=== PATIENT | female | born 1955 | race Caucasian/White ===

== ENCOUNTER 2018-03-22 06:12 | Inpatient (IN) ==
[2018-03-22] MEDS ORDERED: Sodium Chlor 0.9% Inj 500 ML IV.CONT ONE (07:15)
[2018-03-22] MEDS ORDERED: Chlorhexidine Gluconate 2% 1 Pack (2 Cloths) TOPICAL ONE (07:15)
[2018-03-22] MEDS ORDERED: Metoprolol Tartrate 25 MG Tablet PO ONE (07:15)
--- NOTE | 2018-03-22 11:26 | NM ---
EXAM DATE: 03/22/2018 11:04 AM EDT AGE/SEX: 63 years / Female INDICATIONS: Squamous cell carcinoma. Right groin cancer. CLINICAL DATA: This is the patient's subsequent encounter. Patient reports that signs and symptoms h ave been present for 1 day and indicates a pain score of 0/10. MEDICAL/SURGICAL HISTORY: Hypertension. Irritable bowel syndrome. Parkinson's disease. Colon resection. COMPARISON: No prior exams available for comparison. No external comparison. TECHNIQUE: Multiple injections were made per protocol. Lymphangiogram phase was obtained in addition to delayed spot views. DOSE: 1.0 mCi Tc99m Tc99m Sulfur Colloid intradermal IMAGING: SPECT/CT imaging with fusion was performed. RADIATION DOSE: 2.19 CTDIvol(mGy) FINDINGS: Isotope was injected around the edges of the lesion. The most prominent first identified lymph node i s in the left inguinal region and marked. There is a contralateral node as well not as radiodense CONCLUSION: 1. Bilateral inguinal lymph nodes show uptake left greater than right. The lymph nodes on the CT sca n is not overly impressive in size or appearance. Electronically signed by: Frantz Cassidy MD 03/22/2018 11:24 AM EDT
[2018-03-22] MEDS ORDERED: Scopalamine 1.5 MG Patch T-DERMAL ONE ×2 (12:03→12:15)
[2018-03-22] MEDS ORDERED: Lidocaine 1%/Epinephrine 1:100,000 Inj 30 ML Vial ONE (12:40)
[2018-03-22] MEDS ORDERED: Lidocaine PF 1% Inj 5 ML Syringe OTHER ONE (13:10)
[2018-03-22] MEDS ORDERED: Neostigmine Inj 5 MG/5 ML Syringe IV.PUSH ONE (13:10)
[2018-03-22] MEDS ORDERED: Ketorolac Inj 30 MG/ML (IVP) Vial IV.PUSH ONE (13:10)
[2018-03-22] MEDS ORDERED: Glycopyrrolate Inj 1 MG/5 ML Syringe IV.PUSH ONE (13:10)
[2018-03-22] MEDS ORDERED: ceFAZolin 2 GM Premix Inj 2 GM/50 ML PIGGYBACK IV.SIG ONE (15:10)
[2018-03-22] MEDS ORDERED: Sodium Chloride 0.9% 2 ML Flush PRN IV.FLUSH (15:44)
[2018-03-22] MEDS ORDERED: LORazepam 0.5 MG Tablet PO PRN (16:29)
[2018-03-22] MEDS ORDERED: fentaNYL Citrate Inj 100 MCG/2 ML Ampul ONE (16:57)
[2018-03-22] MEDS ORDERED: *morphine SULFATE 10 MG/ML PERIprocedure ONLY ONE (17:17)
[2018-03-22] MEDS: KCL 20 mEq/D5W/NaCl 0.45% Inj 1,000 ML IV.CONT SCH (17:20)
[2018-03-22] MEDS: Acyclovir 200 MG Capsule PO SCH (18:26)
[2018-03-22] MEDS: Ketorolac Inj 30 MG/ML (IVP) Vial IV.PUSH SCH (18:44)
[2018-03-22] MEDS: Amantadine 100 MG Capsule PO SCH (20:49)
[2018-03-22] MEDS ORDERED: Sodium Chloride 0.9% 2 ML Flush BID IV.FLUSH SCH (21:00)
[2018-03-23] MEDS: Ketorolac Inj 30 MG/ML (IVP) Vial IV.PUSH SCH ×2 (00:11→05:20)
[2018-03-23] MEDS: KCL 20 mEq/D5W/NaCl 0.45% Inj 1,000 ML IV.CONT SCH (00:13)
[2018-03-23 04:35] VITALS: O2SAT 98
[2018-03-23 07:37] LABS: Baso # (Auto) 0.1 th/mm3 (0.0-0.2); Baso % (Auto) 0.6 % (0.0-2.0); Eos # (Auto) 0.1 th/mm3 (0.0-0.4); Eos % (Auto) 1.6 % (0.0-4.0); Hematocrit 37.9 % (35.0-46.0); Hemoglobin 13.1 gm/dL (11.6-15.3); Lymph # (Auto) 1.5 th/mm3 (1.0-4.8); Lymph % (Auto) 15.9 % (9.0-44.0); Mean Corpuscular HGB Conc 34.6 % (32.0-36.0); Mean Corpuscular Volume 101.2 fL (80.0-100.0); Mean Platelet Volume 8.9 fL (7.0-11.0); Mono # (Auto) 0.8 th/mm3 (0.0-0.9); Mono % (Auto) 8.8 % (0.0-8.0); Neut # (Auto) 6.7 th/mm3 (1.8-7.7); Neut % (Auto) 73.1 % (16.0-70.0); Platelet Count 270 th/mm3 (150-450); Red Blood Count 3.75 mil/mm3 (4.00-5.30); Red Cell Distribution Width 12.7 % (11.6-17.2); White Blood Count 9.1 th/mm3 (4.0-11.0)
[2018-03-23 08:04] LABS: Calcium 8.2 mg/dL (8.5-10.1); Carbon Dioxide 26.8 meq/L (21.0-32.0); Potassium 3.5 meq/L (3.5-5.1)
[2018-03-23 08:54] VITALS: BP 136/85; PULSE 64; RESP 18; TEMP 98.1
[2018-03-23] MEDS ORDERED: Triamterene/HCTZ 37.5 MG/25 MG Tablet PO SCH (09:00)
[2018-03-23] MEDS ORDERED: CHLORZOXAZONE 500 MG PO SCH (09:00)
[2018-03-23] MEDS: Acyclovir 200 MG Capsule PO SCH (10:14)
[2018-03-23] MEDS: Amantadine 100 MG Capsule PO SCH (10:14)
--- NOTE | 2018-03-23 12:59 | MD ---
cc: Ansley Coffman MD,Katya Abreu,Wayne BAUTISTA DATE OF DISCHARGE: 03/23/2018 PROCEDURE: 03/22/2018: Modified radical reexcision of a right Bartholin gland carcinoma with bilateral groin sentinel lymph node mapping and excisional biopsies. HOSPITAL COURSE: She did well in her early postop period. She was hemodynamically stable, tolerating oral intake. Collins catheter removed pending voiding. Ins and outs are 2710/1525. H and H 13.1 and 37.9. Electrolytes essentially normal; BUN and creatinine, 12 and 0.82. PHYSICAL EXAMINATION: VITAL SIGNS: Afebrile, pulse 62-82, respirations 16-18, blood pressure 109-125/71-72, O2 saturations greater than or equal to 96%. GENERAL: Alert and oriented x3. LUNGS: Clear. CARDIOVASCULAR: Regular rate and rhythm. GROIN: Groin incision dressings are dry and intact. The perineal incision is dry. No active bleeding. Mild serosanguineous discharge on pad. EXTREMITIES: Nontender. ASSESSMENT: Postoperative day number 1, doing well the early postoperative period. The findings and steps taken as were discussed. Final pathology is pending. Activities and restrictions reviewed. Questions were asked and answered. She expressed good understanding. PLAN: Discharge to home today. She is to contact our office to schedule a followup in 1-2 weeks. Instructions are given regarding wound care and she can contact our office should she have any questions or problems between now and the time of scheduled followup. She is to resume her prior medications. She has a prescription for tramadol for pain to which she has no known sensitivity. MD LACIE Bain/kindra/rodriguez , 08:54 AM , 08:59 AM
--- NOTE | 2018-04-02 21:33 | MP ---
cc: Ansley Coffman MD,Wayne Rodriguez,Katya Lizarraga,Jc BAUTISTA DATE OF OPERATION: 03/22/2018 PREOPERATIVE DIAGNOSES: 1. 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 2. Status post primary resection of the Bartholin gland/duct. POSTOPERATIVE DIAGNOSES: 1. 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 2. Status post primary resection of the Bartholin gland/duct. PROCEDURE PERFORMED: Modified radical reexcision of the right Bartholin gland/duct, bilateral groin sentinel lymph node mapping and excisional biopsies. 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 ANESTHESIA: General endotracheal anesthesia. ESTIMATED BLOOD LOSS: 100 mL. HISTORY: This is a 63-year-old female who had a mass in the region of the right Bartholin gland/duct that was resected and final pathology showed squamous cell carcinoma arising from the resected specimen. She is seen and healing up well from that surgery. Physical exam revealed no visible or palpable residual tumor. Similarly, there were no appreciably abnormal enlarged inguinal or femoral lymph nodes. She had a PET CT scan that showed no PET avid activity in the primary tumor bed or elsewhere and no pathologically enlarged or PET avid lymph nodes. She was counseled regarding options and various ways to further address this, treat it and/or followup. She was in favor of a modified radical reexcision of the tumor bed and agreed with our recommendation for sentinel lymph node mapping and sentinel lymph node excision of the groins of the inguinal femoral region. DESCRIPTION OF PROCEDURE: The procedure started this morning at approximately 8 a.m. when technetium-99 was injected circumferentially around in the submucosal area around the previous excision site and it was noted that the excision site had been healing well. Lymphoscintigraphy interestingly showed a more rapid and stronger drainage to the contralateral left groin with a single prominent sentinel lymph node in the superficial medial region of the left groin identified. Also identified was a less intense sentinel lymph node in the right (ipsilateral) groin in the superficial medial space as well. She was taken to the operating room and placed in dorsal lithotomy position after general endotracheal anesthesia was administered. A timeout was undertaken. She was identified by site recognition and the hospital ID [email or web address], and the proposed procedure was reviewed and confirmed. Exam under anesthesia was performed with the findings as described above. She was prepped and draped in sterile fashion. Diluted methylene blue dye was injected circumferentially in the submucosal space around the margins of the previous tumor excision on the right in the region of the resection from the right Bartholin gland. The Gamma probe was used to help identify a strong signal in each groin. Starting with the left groin where lidocaine with epinephrine was injected in the subcutaneous tissue, a small incision was made over the region of the anticipated sentinel node and taken down to Richelle fascia. With blunt dissection and focal cautery within the superficial medial space, a prominent lymph node with a blue hue and strong signal intensity was identified. The signal with the Gamma probe ranged from 520-870 counts per second, and using bipolar cautery and blunt dissection, it was removed from surrounding tissue and taken from the left groin. Again, the signal intensity was checked with the range of activity as noted above. The dissection bed was again inspected and then checked with the Gamma probe and there was no significant residual increased signal in the left groin. A moist Ray-Susana sponge was placed in the dissected area. Attention was then directed toward the right side where similarly, lidocaine with epinephrine was injected. A small incision was made over the region of the anticipated sentinel node and dissected down through Richelle fascia. With blunt dissection and cautery dissection in the superficial space, similarly a sentinel lymph node was identified that was prominent with a blue hue. The signal intensity was less intense on this side and it was removed with bipolar cautery and sharp dissection. Once removed, the counts per second range from 39-54 counts per second. The dissection bed in the right groin was checked visually and with the Gamma probe and there was no persistent intense signal that remained. Each of the sentinel lymph nodes corresponded anatomically as expected to those seen on lymphoscintigraphy. Both groin sites were irrigated. Richelle fascia was closed with a running 3-0 Vicryl suture and the skin edges were closed with running 3-0 Vicryl subcuticular closure. A single longitudinal Steri-Strip was placed along the incision and then dry sterile dressings and towels were placed over the groins. She was placed in high lithotomy position. Lidocaine with epinephrine was injected. Visual and manual inspection was used. Following the previous surgical excision and following the anatomical guidance, dissection was initiated with sharp dissection and cautery, going wider and deeper, removing the tissue at the borders of the previous excision site and adjacent tissue, dissecting down into the ischiorectal fossa, again removing all previous scar with margin of a new tissue, noting that there was no obvious residual Bartholin gland or duct nor was there any obvious residual tumor. The dissection was carried down to the muscle of the borders of the ischiorectal fossa and the specimen was removed as modified radical reexcision of right Bartholin gland/duct. Deep to this, along the muscular border, another specimen was removed and labeled as deep margin and added to the pathologic specimens. The area was irrigated. The space was then closed in layers using interrupted 3-0 Vicryl sutures, closing the space and reapproximating the tissues in a stepwise fashion until the skin and mucosa were in close proximity without tension, and they were closed with interrupted 3-0 Vicryl sutures. Pelvic exam confirmed there were no remaining foreign objects in the vagina, good hemostasis, good closure without tension, satisfactory cosmetic result. Preliminary and final counts were correct. She was returned to dorsal supine position. Collins catheter was placed and she was pending reversal of anesthesia when I left the operating room to precede her to the postanesthesia care unit and to speak to the family member who was waiting in the surgical waiting area. MD LACIE Bain/josephine , 07:36 PM , 07:51 PM ADA
== END 2018-03-23 10:03 | disposition home or self-care (01) ==
LOC: HSDI 06:12 → EDSTATUS 13:00 → HCIN 18:04
PROVIDERS: ADMIT Obstetrics & Gynecology Gynecologic Oncology; ATTEND Obstetrics & Gynecology Gynecologic Oncology